=== PATIENT | female | born 2000 | race Caucasian/White ===

== ENCOUNTER 2022-08-11 15:10 | Observation (INO) | payer OTHER, SELFPAY ==
[2022-08-11 15:33] VITALS: TEMP 36.5
[2022-08-11 15:34] VITALS: BP 87/51; PULSE 105
[2022-08-11 16:04] LABS: Bilirubin Urine NEGATIVE (NEGATIVE); Blood Urine NEGATIVE (NEGATIVE); Clarity Urine CLEAR (CLEAR); Color Urine YELLOW (YELLOW); Glucose Urine UA NEGATIVE (NEGATIVE); Ketones Urine NEGATIVE (NEGATIVE); Leukocyte Esterase Urine NEGATIVE (NEGATIVE); Nitrite Urine NEGATIVE (NEGATIVE); Protein Urine NEGATIVE (NEG/TRACE); Specific Gravity Urine >=1.030 (1.005-1.025)
[2022-08-11 16:12] LABS: Urine Microscopic Indicated NO
== END 2022-08-11 16:29 | disposition home or self-care (01) ==
PROVIDERS: Admitting Provider Obstetrics & Gynecology; Visit Provider Obstetrics & Gynecology
DX: O26.893 Other specified pregnancy related conditions, third trimester (principal); R51.9 Headache, unspecified; R42 Dizziness and giddiness; H53.9 Unspecified visual disturbance; Z3A.00 Weeks of gestation of pregnancy not specified
CPT/HCPCS: 81003; G0378; G0379

== ENCOUNTER 2022-08-25 10:00 | Outpatient (OUT) | payer OTHER, SELFPAY ==
[2022-08-25 10:49] VITALS: BP 98/54; PULSE 90; RESP 16; TEMP 36.6
[2022-08-25 10:50] LABS: Bilirubin Urine SMALL (NEGATIVE); Blood Urine NEGATIVE (NEGATIVE); Clarity Urine CLEAR (CLEAR); Color Urine DK. YELLOW (YELLOW); Glucose Urine UA NEGATIVE (NEGATIVE); Ketones Urine 15 mg/dL (NEGATIVE); Leukocyte Esterase Urine NEGATIVE (NEGATIVE); Nitrite Urine NEGATIVE (NEGATIVE); Protein Urine 30 mg/dL (NEG/TRACE); Urobilinogen Urine >=8.0 EU/dL (0.2-1.0)
[2022-08-25 10:51] VITALS: RESP 16; TEMP 36.6
[2022-08-25 11:07] LABS: Urine Microscopic Indicated YES
[2022-08-25 11:10] LABS: Bacteria Urine NONE SEEN #/HPF (NONE SEEN); Mucus Urine LARGE (NONE SEEN); Squamous Epithelial Cell Urine MODERATE #/LPF (NONE/RARE); WBC Urine NONE SEEN #/HPF (NONE SEEN)
[2022-08-25 11:11] LABS: Urine Culture Indicated NO
[2022-08-25] MEDS: 0.9 % SODIUM CHLORIDE 1,000 ML 125 ML IV (11:42)
[2022-08-25] MEDS: ONDANSETRON PF 4 MG/2 ML VIAL IV (12:01)
[2022-08-25] MEDS: CEFAZOLIN SODIUM/DEXTROSE,ISO 1 GM/50 ML IV.SOLN IV (12:01)
== END 2022-08-25 13:45 | disposition home or self-care (01) ==
LOC: FBC 10:10 → FBCO 14:02 → FBC 14:03
PROVIDERS: Visit Provider Obstetrics & Gynecology
DX: O26.899 Other specified pregnancy related conditions, unspecified trimester (principal); R11.2 Nausea with vomiting, unspecified; R55 Syncope and collapse; Z3A.00 Weeks of gestation of pregnancy not specified
CPT/HCPCS: 59025; 81003; 81015; 96374; 96375; G0378; G0379

== ENCOUNTER 2022-10-09 01:19 | Inpatient (IN) | payer OTHER, SELFPAY ==
[2022-10-09] VITALS (18 sets, daily range): BP systolic 99–117; BP diastolic 56–74; PULSE 51–90; RESP 14–18; TEMP 35.8–37.1
[2022-10-09] MEDS: 0.9 % SODIUM CHLORIDE 1,000 ML 1000 ML IV (01:40)
[2022-10-09] MEDS: KETOROLAC TROMETHAMINE 30 MG/ML VIAL IVP (02:06)
[2022-10-09] MEDS: LIDOCAINE HCL 1% 200 MG/20 ML MDV INJ (02:10)
--- NOTE | 2022-10-09 02:24 | PM.OBPRCVD ---
Procedure Procedure: per Dr Freeman. I was called to come for delivery and patient was complete and involuntarily pushing. I gave orders to call Dr Freeman to cover delivery while I was enroute. When I arrived patient had delivered and Dr Freeman attended the delivery and baby was in patient's arms. I am charting delivery noted after receiving report from Dr Freeman. Induction method: none Delivery monitor: external FHT and external uterine Route of delivery: Episiotomy Description: none Laceration description: perineal - 1st degree Delivery repair: Vicryl Estimated blood loss (mL): 200 Anesthesia type: None Infant Delivery date: 10/09/22 Gender: female presentation: vertex Placental delivery description: Spontaneous cord description: 3 Vessels Infant A Delivery date: 10/09/22 Gender: female presentation: vertex
[2022-10-09 02:27] LABS: Basophils Absolute Auto 0.1 10^3/uL (0.0-0.1); Basophils Percent Auto 0.5 % (0.2-2.0); Eosinophils Absolute Auto 0.1 10^3/uL (0.0-0.7); Eosinophils Percent Auto 0.4 % (0.9-7.0); Hematocrit 31.7 % (36.0-48.0); Hemoglobin 9.7 g/dL (12.0-16.0); Immature Granulocytes Abs Auto 0.25 10^3/uL (0.00-0.03); Immature Granulocytes Pct Auto 1.9 % (0.0-0.5); Lymphocytes Absolute Auto 4.1 10^3/uL (1.2-3.8); Lymphocytes Percent Auto 31.3 % (20.5-60.0); Mean Corpuscular HGB Conc 30.6 g/dL (29.9-35.2); Mean Corpuscular Hemoglobin 22.2 pg (26.7-34.0); Mean Corpuscular Volume 72.5 fL (81.0-99.0); Mean Platelet Volume 11.7 fL (9.5-13.5); Monocytes Absolute Auto 0.7 10^3/uL (0.3-0.8); Monocytes Percent Auto 5.6 % (1.7-12.0); Neutrophils Percent Auto 60.3 % (43.0-75.0); Platelet Count 293 10^3/uL (150-450); Red Blood Count 4.37 10^6/uL (4.20-5.40); Red Cell Distribution Width 15.9 % (11.0-15.0); White Blood Count 13.2 10^3/uL (4.0-11.0)
--- NOTE | 2022-10-09 04:17 | PC.NURSE ---
0125- Patient arrives to unit moaning in pain. Under wear and pants soaked in amniotic fluid and bloody discharge. Patient states water broke around 0050 and then labor pains began shortly after. 0130-Patient laid back in bed for cervical check. Patient is 10cm/100% and [address] Call out for Dr. Freeman to come in for delivery. Patient being moved to labor room. 0138- Patient continues to scream and thrash around. Attempting to spot check heart rate. Call out to Dr. Freeman again to verify on way in. 0140- IV innitiated. NS started at 999ml/hr. 0150 Patient . 0153- Patient pushing involuntarily-Cardio called up for assistance if needed and plant operator/shift supervisor in room. 0156- Large crown-viscous lidocaine applied to perineum. 0157- Patient continues to push invountarily with each contraction. 0158- Dr. Freeman arrives and is at bedside. 0158- Patient pushing with contraction. 0200- Head delivered followed by delivery of infant. Viable female infant born via . 0205-Toradol ordered per dr. Freeman. Placenta delivered and pit wide open. 0206-Toradol 30mg given IVP. 0210 Lidocaine 1% to perineum. 0210-Repair in progress. 0216- Ice applied to perineum. Patient holding infant skin to skin and doing well.
--- NOTE | 2022-10-09 07:12 | W.PC.ACHO ---
Registration Status: ADM IN Primary Language: Yemeni Preferred Language: Yemeni Active Medications Generic Name Dose Route Start Last Admin Trade Name Alisa PRN Reason Stop Dose Admin Acetaminophen 650 mg 10/09/22 02:37 Acetaminophen 325 Mg Tablet PO Q6H PRN Mild Pain Al Hydroxide/Mg Hydroxide 2,400 mg 10/09/22 02:37 Magnesium Hydroxide 2,400 Mg/10 Ml Oral.Susp PO Q6H PRN Dyspepsia Benzocaine/Menthol 1 applic 10/09/22 02:37 Benzocaine/Menthol 85 Gram Bottle TOPICAL .PRN PRN Pain Carboprost Tromethamine 250 mcg 10/09/22 03:35 Carboprost Tromethamine 250 Mcg/Ml 1 Ml Vial IM Q15M PRN Bleeding Docusate Sodium 100 mg 10/10/22 09:00 Docusate Sodium 100 Mg Capsule PO BID [facility] Oxytocin 20 unit/ Sodium 1,002 mls @ 125 mls/hr 10/09/22 02:45 10/09/22 03:32 Chloride IV 10/09/22 10:44 125 mls/hr Q8H BERNIE 125 mls/hr Administration Sodium Chloride 1,000 mls @ 125 mls/hr 10/09/22 03:45 Sodium Chloride 0.9% 1,000 Ml IV .Q8H [facility] Ibuprofen 800 mg 10/09/22 02:37 Ibuprofen 600 Mg Tablet PO Q8H PRN Moderate Pain Lidocaine 5 ml 10/09/22 03:35 Lidocaine Viscous 2% 15 Ml Topical Solution TOPICAL DIRECTED PRN Pain Lidocaine 1 ml 10/09/22 03:35 10/09/22 02:10 Lidocaine Hcl 1% 200 Mg/20 Ml Mdv INJ 1 ml DIRECTED PRN Administration Pain Methylergonovine Maleate 0.2 mg 10/09/22 03:35 Methylergonovine Maleate 0.2 Mg/Ml Ampule IM ONCE PRN Uterine Contractility/Contract Methylergonovine Maleate 0.2 mg 10/09/22 03:35 Methylergonovine Maleate 0.2 Mg Tablet PO Q4H PRN Uterine Contractility/Contract Misoprostol 600 mcg 10/09/22 03:35 Misoprostol 100 Mcg Tablet PO ONCE PRN Uterine Bleeding Misoprostol 800 mcg 10/09/22 03:35 Misoprostol 100 Mcg Tablet SL ONCE PRN Uterine Bleeding Misoprostol 1,000 mcg 10/09/22 03:35 Misoprostol 100 Mcg Tablet IN ONCE PRN Uterine Bleeding Nalbuphine HCl 10 mg 10/09/22 03:35 Nalbuphine Hcl 10 Mg/Ml Ampule IV Q3H PRN Pain Ondansetron HCl 4 mg 10/09/22 03:35 Ondansetron Pf 4 Mg/2 Ml Vial IV Q6H PRN Nausea And Vomiting Ondansetron HCl 4 mg 10/09/22 03:35 Ondansetron 4 Mg Rapdis Tablet SL Q6H PRN Nausea And Vomiting Simethicone 80 mg 10/09/22 02:37 Simethicone 80 Mg Tab.Chew PO QID PRN Abdominal Distention Temazepam 15 mg 10/09/22 20:00 Temazepam 15 Mg Capsule PO BEDTIME PRN Sleep Witch Nay/Glycerin 1 each 10/09/22 02:37 Glycerin/Witch Nay 1 Each Jar TOPICAL .PRN PRN Pain Diet Category Date Time Status Regular Consistency Diet Diet 10/09/22 Breakfast Active Consults Category Date Time Status Consult to Collections Rep Routine Cons 10/09/22 Ordered IV Insertion/Site Date of IV Line Insertion [18g 10/09/22 left Antecubital] IV Insertion Time [18g left 01:40 Antecubital] Neurology Patient orientation (short person,place,time,situation list) Respiratory Lung sounds [Throughout] clear Oxygen Delivery Method Room Air Oxygen Delivery Method Room Air Oxygen Delivery Method Room Air Bowels Bowel Pattern No Bowel Movement Renal Bladder Pattern Continent
--- NOTE | 2022-10-09 14:30 | SWNOTE1 ---
Consult for financial services rep placed. SW spoke with nursing, concerns for social issues and father of baby is incarcerated, unsure of where pt is going to be living at discharge. SW met with pt and the father of the baby's mother was in room as well. Pt voiced she was doing well and so was baby. Pt and the grandmother of baby voiced they do have everything they need in the homes for baby. Pt's mother and the father of the baby's mother has a room set up for baby. Pt is going to be going with her mother in law with the baby once discharged from here and will be staying with her for now. Father of baby is incarcerated, but his mother voiced he will be out soon. Pt voiced she does have a lot of support between families. Pt and grandmother appropriate with baby. At this time no concerns. Nursing was in room during conversation as well. SW let pt know if she had any questions to let SW know. SW to follow as needed.
[2022-10-09] MEDS: IBUPROFEN 400 MG TABLET 800 MG PO (14:39)
[2022-10-09 17:22] LABS: Amphetamine Screen Urine NEGATIVE (NEGATIVE); Barbiturates Screen Urine NEGATIVE (NEGATIVE); Benzodiazepines Screen Urine NEGATIVE (NEGATIVE); Buprenorphine Screen Urine NEGATIVE (NEGATIVE); Cannabinoid Screen Urine NEGATIVE (NEGATIVE); Cocaine Screen Urine NEGATIVE (NEGATIVE); Methadone Screen Urine NEGATIVE (NEGATIVE); Methamphetamines Screen Urine NEGATIVE (NEGATIVE); Opiate Screen Urine NEGATIVE (NEGATIVE); Oxycodone Screen Urine NEGATIVE (NEGATIVE); Phencyclidine Screen Urine NEGATIVE (NEGATIVE); Tricyclic Antidepressant Urine NEGATIVE (NEGATIVE)
--- NOTE | 2022-10-09 19:53 | W.PC.ACHO ---
Registration Status: ADM IN Primary Language: Welsh Preferred Language: Welsh 191 care relinquished. Active Medications Generic Name Dose Route Start Last Admin Trade Name Freq PRN Reason Stop Dose Admin Acetaminophen 650 mg 10/09/22 02:37 Acetaminophen 325 Mg Tablet PO Q6H PRN Mild Pain Al Hydroxide/Mg Hydroxide 2,400 mg 10/09/22 02:37 Magnesium Hydroxide 2,400 Mg/10 Ml Oral.Susp PO Q6H PRN Dyspepsia Benzocaine/Menthol 1 applic 10/09/22 02:37 Benzocaine/Menthol 85 Gram Bottle TOPICAL .PRN PRN Pain Carboprost Tromethamine 250 mcg 10/09/22 03:35 Carboprost Tromethamine 250 Mcg/Ml 1 Ml Vial IM 10/10/22 03:00 Q15M PRN Bleeding Docusate Sodium 100 mg 10/10/22 09:00 Docusate Sodium 100 Mg Capsule PO BID BERNIE Sodium Chloride 1,000 mls @ 125 mls/hr 10/09/22 03:45 Sodium Chloride 0.9% 1,000 Ml IV .Q8H BERNIE Ibuprofen 800 mg 10/09/22 14:33 10/09/22 14:39 Ibuprofen 400 Mg Tablet PO 800 mg Q8H PRN Administration Moderate Pain Methylergonovine Maleate 0.2 mg 10/09/22 03:35 Methylergonovine Maleate 0.2 Mg/Ml Ampule IM 10/10/22 03:00 ONCE PRN Uterine Contractility/Contract Methylergonovine Maleate 0.2 mg 10/09/22 03:35 Methylergonovine Maleate 0.2 Mg Tablet PO 10/10/22 03:00 Q4H PRN Uterine Contractility/Contract Misoprostol 600 mcg 10/09/22 03:35 Misoprostol 100 Mcg Tablet PO 10/10/22 03:00 ONCE PRN Uterine Bleeding Misoprostol 800 mcg 10/09/22 03:35 Misoprostol 100 Mcg Tablet SL 10/10/22 03:00 ONCE PRN Uterine Bleeding Misoprostol 1,000 mcg 10/09/22 03:35 Misoprostol 100 Mcg Tablet SC 10/10/22 03:00 ONCE PRN Uterine Bleeding Ondansetron HCl 4 mg 10/09/22 03:35 Ondansetron Pf 4 Mg/2 Ml Vial IV Q6H PRN Nausea And Vomiting Ondansetron HCl 4 mg 10/09/22 03:35 Ondansetron 4 Mg Rapdis Tablet SL Q6H PRN Nausea And Vomiting Simethicone 80 mg 10/09/22 02:37 Simethicone 80 Mg Tab.Chew PO QID PRN Abdominal Distention Temazepam 15 mg 10/09/22 20:00 Temazepam 15 Mg Capsule PO BEDTIME PRN Sleep Witch Nay/Glycerin 1 each 10/09/22 02:37 Glycerin/Witch Nay 1 Each Jar TOPICAL .PRN PRN Pain Diet Category Date Time Status Regular Consistency Diet Diet 10/09/22 Breakfast Active Consults Category Date Time Status Consult to Global Implementation Manager Routine Cons 10/09/22 Ordered IV Insertion/Site Date of IV Line Insertion [18g 10/09/22 left Antecubital] IV Insertion Time [18g left 01:40 Antecubital] Neurology Patient orientation (short person,place,time,situation list) Respiratory Lung sounds [Throughout] clear Lung sounds [Throughout] clear Lung sounds [Throughout] clear Oxygen Delivery Method Room Air Oxygen Delivery Method Room Air Oxygen Delivery Method Room Air Cardiology Heart Sounds Strong,Regular Bowels Bowel Pattern No Bowel Movement Renal Bladder Pattern Continent Bladder Pattern Continent
[2022-10-10 08:09] LABS: Basophils Percent Auto 0.2 % (0.2-2.0); Eosinophils Absolute Auto 0.1 10^3/uL (0.0-0.7); Eosinophils Percent Auto 0.3 % (0.9-7.0); Hematocrit 28.2 % (36.0-48.0); Hemoglobin 8.4 g/dL (12.0-16.0); Immature Granulocytes Abs Auto 0.11 10^3/uL (0.00-0.03); Immature Granulocytes Pct Auto 0.8 % (0.0-0.5); Lymphocytes Absolute Auto 2.3 10^3/uL (1.2-3.8); Lymphocytes Percent Auto 15.8 % (20.5-60.0); Mean Corpuscular HGB Conc 29.8 g/dL (29.9-35.2); Mean Corpuscular Hemoglobin 21.6 pg (26.7-34.0); Mean Corpuscular Volume 72.7 fL (81.0-99.0); Mean Platelet Volume 10.5 fL (9.5-13.5); Monocytes Absolute Auto 0.6 10^3/uL (0.3-0.8); Monocytes Percent Auto 4.3 % (1.7-12.0); Neutrophils Absolute Auto 11.4 10^3/uL (1.4-6.5); Neutrophils Percent Auto 78.6 % (43.0-75.0); Platelet Count 241 10^3/uL (150-450); Red Blood Count 3.88 10^6/uL (4.20-5.40); Red Cell Distribution Width 16.2 % (11.0-15.0); White Blood Count 14.6 10^3/uL (4.0-11.0)
[2022-10-10] MEDS: DOCUSATE SODIUM 100 MG CAPSULE PO ×2 (08:27→22:42)
[2022-10-10] MEDS: IBUPROFEN 400 MG TABLET 800 MG PO ×2 (08:27→22:42)
[2022-10-10 08:30] VITALS: RESP 18
[2022-10-10 11:10] VITALS: BP 100/64; PULSE 75
--- NOTE | 2022-10-10 13:01 | PM.OBPN ---
OB - PN: Subj Subjective Patient comments: no complaints, pain well controlled, tolerating diet and flatus present status: doing well and well [place] feeding status: exclusively Exam Constitutional Vital Signs, click to edit/add: Last Vital Signs Temp 98.0 F 10/09/22 20:15 Pulse 75 10/10/22 11:10 Resp 18 10/10/22 08:30 BP 100/64 10/10/22 11:10 O2 Del Method Room Air 10/10/22 08:30 Documenting provider has reviewed patient's vital signs: yes Common normals: no apparent distress, oriented x3, no limitations, healthy appearing and alert General appearance: cooperative, comfortable, well kempt and well developed Nutritional appearance: thin Orientation/consciousness: Yes awake, Yes oriented to person, Yes oriented to place and Yes oriented to time HENMT Common normals: normocephalic and head/scalp atraumatic Eye Common normals: PERRL Pupil: accommodation reflex normal Neck & C-Spine Common normals: full ROM and supple Chest Common normals: inspection of chest normal Respiratory Common normals: normal respiratory effort Cardio Common normals: regular rate and regular rhythm GI Common normals: Normal to inspection, nondistended, normoactive bowel sounds present Common normals: no CVA tenderness Extremity Common normals: normal to inspection and full ROM Neuro Common normals: CN's II-XII intact bilaterally, moves all extremities, no focal motor deficits and no sensory deficits noted Motor exam: strength 5/5 throughout Psych Common normals: mental status grossly normal, thought process normal, cooperative and affect normal Appearance: grossly normal and well kempt Attitude: calm Results Labs Labs: Short CBC 10/10/22 Range/Units 07:58 WBC 14.6 H (4.0-11.0) 10^3/uL Hgb 8.4 L (12.0-16.0) g/dL Hct 28.2 L (36.0-48.0) % Plt Count 241 (150-450) 10^3/uL OB - PN: A/P Plan - Vaginal Delivery day: 1 Plan: routine care Time Spent with Patient Time: Total time spent is greater than 50% in coordination of care (as documented) at patient's floor/unit and/or counseling patient: Total time spent with greater than 50% in coordination of care (as documented) at patient's floor/unit and/or counseling patient: less than 15 minutes
--- NOTE | 2022-10-10 13:13 | PC.NURSE ---
LC into room, mom holds baby. Baby is currently displaying mid cues to late cues for feeding. Mom and grandmother states they told use every 2-3 hours and it has only been 90 minutes . LC reviews baby led feeding to family and that every 2-3 hours is just guideline, and no longer than every 2-3 in first few weeks. Best to follow infant cues for establishing milk supply and getting off to best start. Mom immediately turns infant to breast and assists with latch. Deep latch achieved with audible swallows noted. Mom noted to have everted nipples, medium length and small but full breast tissue. No evidence of damage after nursing. nurses 17 minutes and released latch quiet. Burped and returned to second breast per mom independently Couplet are doing well. Handout and support offered..
[2022-10-10 16:21] VITALS: BP 114/72; PULSE 64
[2022-10-10 16:31] VITALS: RESP 18
[2022-10-10 16:32] VITALS: TEMP 36.8
--- NOTE | 2022-10-10 19:45 | W.PC.ACHO ---
Registration Status: ADM IN Primary Language: Emirati Preferred Language: Emirati Report given to Allie Rodgers RN. Care relinquished. Active Medications Generic Name Dose Route Start Last Admin Trade Name Alisa PRN Reason Stop Dose Admin Acetaminophen 650 mg 10/09/22 02:37 Acetaminophen 325 Mg Tablet PO Q6H PRN Mild Pain Al Hydroxide/Mg Hydroxide 2,400 mg 10/09/22 02:37 Magnesium Hydroxide 2,400 Mg/10 Ml Oral.Susp PO Q6H PRN Dyspepsia Benzocaine/Menthol 1 applic 10/09/22 02:37 Benzocaine/Menthol 85 Gram Bottle TOPICAL .PRN PRN Pain Docusate Sodium 100 mg 10/10/22 09:00 10/10/22 08:27 Docusate Sodium 100 Mg Capsule PO 100 mg BID BERNIE Administration Sodium Chloride 1,000 mls @ 125 mls/hr 10/09/22 03:45 Sodium Chloride 0.9% 1,000 Ml IV .Q8H BERNIE Ibuprofen 800 mg 10/09/22 14:33 10/10/22 08:27 Ibuprofen 400 Mg Tablet PO 800 mg Q8H PRN Administration Moderate Pain Ondansetron HCl 4 mg 10/09/22 03:35 Ondansetron Pf 4 Mg/2 Ml Vial IV Q6H PRN Nausea And Vomiting Ondansetron HCl 4 mg 10/09/22 03:35 Ondansetron 4 Mg Rapdis Tablet SL Q6H PRN Nausea And Vomiting Simethicone 80 mg 10/09/22 02:37 Simethicone 80 Mg Tab.Chew PO QID PRN Abdominal Distention Temazepam 15 mg 10/09/22 20:00 Temazepam 15 Mg Capsule PO BEDTIME PRN Sleep Witch Nay/Glycerin 1 each 10/09/22 02:37 Glycerin/Witch Nay 1 Each Jar TOPICAL .PRN PRN Pain Respiratory Lung sounds [Throughout] clear Lung sounds [Throughout] clear Lung sounds [Throughout] clear Oxygen Delivery Method Room Air Oxygen Delivery Method Room Air Oxygen Delivery Method Room Air Cardiology Heart Sounds Strong,Regular Bowels Bowel Pattern No Bowel Movement Bowel Pattern No Bowel Movement Renal Bladder Pattern Continent
[2022-10-11 00:28] VITALS: BP 97/63; PULSE 77
[2022-10-11 00:35] VITALS: TEMP 37
--- NOTE | 2022-10-11 08:17 | W.PC.ACHO ---
Registration Status: ADM IN Primary Language: Mosotho Preferred Language: Mosotho Active Medications Generic Name Dose Route Start Last Admin Trade Name Freq PRN Reason Stop Dose Admin Acetaminophen 650 mg 10/09/22 02:37 Acetaminophen 325 Mg Tablet PO Q6H PRN Mild Pain Al Hydroxide/Mg Hydroxide 2,400 mg 10/09/22 02:37 Magnesium Hydroxide 2,400 Mg/10 Ml Oral.Susp PO Q6H PRN Dyspepsia Benzocaine/Menthol 1 applic 10/09/22 02:37 Benzocaine/Menthol 85 Gram Bottle TOPICAL .PRN PRN Pain Docusate Sodium 100 mg 10/10/22 09:00 10/10/22 22:42 Docusate Sodium 100 Mg Capsule PO 100 mg BID BERNIE Administration Sodium Chloride 1,000 mls @ 125 mls/hr 10/09/22 03:45 Sodium Chloride 0.9% 1,000 Ml IV .Q8H BERNIE Ibuprofen 800 mg 10/09/22 14:33 10/10/22 22:42 Ibuprofen 400 Mg Tablet PO 800 mg Q8H PRN Administration Moderate Pain Ondansetron HCl 4 mg 10/09/22 03:35 Ondansetron Pf 4 Mg/2 Ml Vial IV Q6H PRN Nausea And Vomiting Ondansetron HCl 4 mg 10/09/22 03:35 Ondansetron 4 Mg Rapdis Tablet SL Q6H PRN Nausea And Vomiting Simethicone 80 mg 10/09/22 02:37 Simethicone 80 Mg Tab.Chew PO QID PRN Abdominal Distention Temazepam 15 mg 10/09/22 20:00 Temazepam 15 Mg Capsule PO BEDTIME PRN Sleep Witch Nay/Glycerin 1 each 10/09/22 02:37 Glycerin/Witch Nay 1 Each Jar TOPICAL .PRN PRN Pain Respiratory Lung sounds [Throughout] clear Lung sounds [Throughout] clear Lung sounds [Throughout] clear Oxygen Delivery Method Room Air Oxygen Delivery Method Room Air Cardiology Heart Sounds Strong,Regular Bowels Bowel Pattern No Bowel Movement Renal Bladder Pattern Continent
[2022-10-11 09:20] VITALS: RESP 16; TEMP 36.8
[2022-10-11 09:36] VITALS: BP 111/69; PULSE 70
[2022-10-11] MEDS: DOCUSATE SODIUM 100 MG CAPSULE PO (10:13)
--- NOTE | 2022-10-11 10:51 | P.DS_ITS ---
DS: Providers Provider Date of admission: 10/09/22 01:35 Primary care physician: Non-Staff Physician, Admitting clinician: Shi Freeman Consults: 10/09/22 Consult to Historical Site Guide Routine Reason for consult:: Housing/custodial Attending physician on discharge: Shi Freeman Anticipated date of discharge: 10/11/22 DS: Diagnosis Discharge Diagnosis (1) Normal vaginal delivery: Assessment and plan: PERINEUM INTACT, BREASTS SOFT, VSS NORMAL AFEBRILE, NON FOCAL CLINICAL EXAM GRANDMOTHER SUPPORT PERSON, PARTNER IN ASSISTED OB - DS: Summary Hospital Course Hospital Course: UNCOMPLICATED Time spent discussing smoking cessation with patient: 3 to 10 minutes Peripartum Data - Vaginal Delivery Laceration description: periurethral - 1st degree Complications complications: none Delivery method: spontaneous vaginal delivery Gender: female Discharge plan: home Infant A Gender: female Status at Discharge Functional status at discharge: independent ambulation Overall status at discharge: patient is back to baseline Time Spent with Patient Time attestation: Total time spent providing and/or coordinating discharge services: Time spent: less than 30 minutes Exam Constitutional Vital Signs, click to edit/add: Last Vital Signs Temp 98.3 F 10/11/22 09:20 Pulse 70 10/11/22 09:36 Resp 16 10/11/22 09:20 BP 111/69 10/11/22 09:36 O2 Del Method Room Air 10/10/22 16:31 Documenting provider has reviewed patient's vital signs: yes Common normals: no apparent distress, oriented x3, no limitations, healthy appearing and alert HENMD Common normals: normocephalic and head/scalp atraumatic Eye Common normals: PERRL Pupil: accommodation reflex normal Neck & C-Spine Common normals: full ROM Respiratory Common normals: normal respiratory effort Cardio Common normals: regular rate and regular rhythm GI Common normals: Normal to inspection, nondistended, normoactive bowel sounds present Common normals: no CVA tenderness Extremity Common normals: normal to inspection and full ROM Neuro Common normals: CN's II-XII intact bilaterally, moves all extremities, no focal motor deficits and no sensory deficits noted Motor exam: strength 5/5 throughout Psych Common normals: mental status grossly normal, thought process normal, cooperative and affect normal Discharge Plan Discharge Disposition: Home, Self-Care Condition: Good Assessment: CLINICAL EXAM NON FOCAL, BONDING WELL, PARTNER IN ASSISTED, GRANDMOTHER SUPPORT PERSON, Health Concerns: EMOTIONAL MATURITY, WILL NEED GUIDANCE FROM MATERNAL GRANDMOTHER Plan of Treatment: DISCHARGE Discharge Medications: Continued PNV [id number] [id number] [ Multivitamins] 28 mg iron- 800 mcg tablet 1 tab PO DAILY Forms: Portal Instructions
--- NOTE | 2022-10-11 11:40 | PM.OBPRCCS ---
Procedure Pre-op/Post-op diagnoses: PRIMIP, PRESENTED TO MATERNITY FULLY DILATED AND IN LABOR Procedure: VAGINAL DELIVERY Estimated blood loss (mL): 100 Disposition: other (LDRP 255) Anesthesia type: None Complications: NONE Narrative: UPON ENTERING THE ROOM THE HEAD WAS . THE HEAD WAS DELIVERED OVER AND INTACT PERINEUM WHICH WAS MANUALLY SUPPORTED. THERE WAS NO NUCHAL CORD. THE SHOULDERS AND TORSO IMMEDIATELY FOLLOWED. THE INFANT WAS MOVING AND CRYING UPON DELIVERY. THE UMBILICAL CORD WAS DOUBLY CLAMPED AND CUT AFTER MILKING THE CORD FOR THIRTY SECONDS. THE INFANT WAS PLACED ON THE MOTHER'S CHEST FOR SKIN TO SKIN. THE PLACENTA WAS SPONTANEOUSLY DELIVERED IN TACT AND NOT SENT TO PATHOLOGY. THE PATIENT REQUIRED TWO STITCHES AT THE BASE OF THE INTROITUS. THE VAGINAL SIDE DIAZ AND RECTUM WAS INTACT. THE EBL WAS 100 CC, SEE THE NURSE'S NOTES FOR THE APGARS. THE INSTRUMENT AND SPONGE COUNT WERE CORRECT. THE PATIENT WAS ABLE TO DELIVER HER BABY IN LESS THAN 5 PUSHES WITHOUT AN EPIDURAL. Infant heart rate - 1 minute: 100 bpm or Greater respiratory effort - 1 minute: Slow Respiration/Weak Cry muscle tone - 1 minute: Active Movement reflex response - 1 minute: Prompt Response color - 1 minute: Bluish Hands or Feet total score - 1 minute: 8 heart rate - 5 minute: 100 bpm or Greater respiratory effort - 5 minute: Spontaneous/Strong Cry muscle tone - 5 minute: Active Movement reflex response - 5 minute: Prompt Response color - 5 minute: Bluish Hands or Feet total score - 5 minute: 9
[2022-10-11] MEDS: ADACEL DIPH,PERTUSS(ACELL),TET VAC/PF 0.5 ML ADULT SYRINGE IM (14:44)
== END 2022-10-11 14:50 | disposition home or self-care (01) | DRG 807 ==
PROVIDERS: Admitting Provider Obstetrics & Gynecology; Visit Provider Obstetrics & Gynecology
DX: O70.0 First degree perineal laceration during delivery (principal); Z37.0 Single live birth
CPT/HCPCS: 36415; 59050; 59410; 80307; 85025; 86850; 86900; 86901; 90471; 90715; 96374; 96375

== ENCOUNTER 2022-10-12 08:25 | Outpatient (RCR) | payer OTHER, SELFPAY ==
[2022-10-12 10:36] VITALS: BP 116/79; PULSE 90; RESP 18; TEMP 36.8; O2SAT 96
--- NOTE | 2022-10-12 10:44 | PC.NURSE ---
June and daughter Samantha 3 days old arrive for follow up. Grandmother with pt but not overly supportive or helpful for new mom. June bonding well with , states that has been placing her to the breast whenever baby cues, or fusses. Did struggle last pm as wanted to nurse every 60-90 minutes. Infant has had 3 wet and 3 stools since discharge yesterday afternoon. wet and stooling during her assessment today. Mom engaged and asking several good questions about and infant behavior. Soothes and talks to infant if baby fusses. all questions answered, discussed obtaining pump from insurance but does not have ID or ins. card with her today. Instructed to call insurance co to see if they would direct send pump to her. If not could return with ID and INS card to complete paperwork. Nipples measure at 20mm for flange fit. Verbalized understanding of all teaching and review, no further questions or concerns noted.
== END 2022-10-12 10:35 | disposition home or self-care (01) ==
LOC: FBCO 08:25
PROVIDERS: Visit Provider Midwife
DX: Z39.1 Encounter for care and examination of lactating mother (principal)